=== PATIENT | female | born 1965 | race Two or more races ===

== ENCOUNTER 2017-10-29 06:56 | Emergency (ER) | payer OTHER ==
[2017-10-29 07:01] VITALS: BMI 27.8
[2017-10-29 07:02] VITALS: PULSE 82; RESP 16
--- NOTE | 2017-10-29 07:21 | ED PDOC ---
HPI: Dental Pain/Injury Time Seen by Provider: 10/29/17 07:12 History Per: Patient Onset/Duration Of Symptoms: Days (2) Current Symptoms Are (Timing): Still Present Severity: Moderate Quality: Aching Additional Complaint(s): S/p crown placement right upper molar. Had pain and started on clindamycin and tylenol with codeine yesterday. Continues with pain no fever. Past Medical History Vital Signs: Last Vital Signs Temp 98.1 F 10/29/17 07:02 Pulse 82 10/29/17 07:02 Resp 16 10/29/17 07:02 BP 131/79 10/29/17 07:02 Pulse Ox 98 10/29/17 07:02 - Medical History PMH: HTN - Family History Family History: States: Unknown Family Hx - Home Medications Home Medications: Ambulatory Orders Medication Instructions Recorded traMADol [Ultram] 50 mg PO Q8 #10 tab 10/29/17 - Allergies Allergies/Adverse Reactions: Allergies Allergy/AdvReac Type Severity Reaction Status Date / Time Unobtainable Allergy Verified 10/29/17 07:12 Review of Systems Constitutional: Negative for: Fever ENT: Positive for: Mouth Pain, Mouth Swelling Physical Exam - Physical Exam Appears: Positive for: Non-toxic, No Acute Distress Skin: Positive for: Normal Color, Warm, DRY ENT: Positive for: Other (Right upper molar, no discharge, no abscess palpable.) - ECG O2 Sat by Pulse Oximetry: 98 Disposition - Clinical Impression Clinical Impression: Pain, dental - Patient ED Disposition Is Patient to be Admitted: No Counseled Patient/Family Regarding: Diagnosis, Need For Followup, Rx Given - Disposition Referrals: Anderw Singh DDS [Staff Provider] - Disposition: Routine/Home Disposition Time: 07:21 Condition: FAIR Prescriptions: traMADol [Ultram] 50 mg PO Q8 #10 tab Instructions: Dental Pain (DC)
[2017-10-29 07:32] VITALS: BP 130/80; TEMP 98; O2SAT 100
== END 2017-10-29 08:36 | disposition home or self-care (01) ==
LOC: H.ER 06:56
DX: K08.89 Other specified disorders of teeth and supporting structures (principal)

== ENCOUNTER 2018-05-28 16:28 | Emergency (ER) | payer OTHER ==
[2018-05-28 16:28] VITALS: BMI 27.8
--- NOTE | 2018-05-28 17:02 | ED PDOC ---
Lower Extremity Pain/Injury Time Seen by Provider: 05/28/18 16:35 Chief Complaint (Nursing): Lower Extremity Problem/Injury Chief Complaint (Provider): Lower Extremity Problem History Per: Patient History/Exam Limitations: no limitations Onset/Duration Of Symptoms: Days ((last Monday)) Current Symptoms Are (Timing): Still Present Severity: Moderate Additional Complaint(s): 53 year old female with a past medical history of spinal stenosis, herniated discs, and a central tremor is sent to the ED by her pain management doctor requesting an MRI evaluation. Patient states that she was seen by Dr. Robin today and reported having new onset left foot drop ongoing for the past x 7 days. Patient recently had an outpatient MRI in 02/2018, and is requesting a repeat MRI as this one would not be approved outpatient. Patient was given toradol 30 mg IM today in office by , and reports that the pain is now well controlled. Patient reports that outside of having chronic back pain, she has been experiencing heaviness to the left lower extremity. Denies fever; no other physical complaints. PMD: Demarco Francis MD Pain management: Past Medical History Reviewed: Historical Data, Nursing Documentation, Vital Signs Vital Signs: Last Vital Signs Temp 98.5 F 05/28/18 16:31 Pulse 102 H 05/28/18 16:31 Resp 16 05/28/18 16:31 BP 168/97 H 05/28/18 16:31 Pulse Ox 98 05/28/18 16:31 BENJAMIN Report Viewed: Yes - Medical History PMH: HTN Other PMH: spinal stenosis, herniated discs, central tremor - Surgical History Surgical History: Other surgeries: cervical fusion, knee procedure: meniscus repair, epidural to lumbar spine. - Family History Family History: States: No Known Family Hx - Home Medications Home Medications: Ambulatory Orders Medication Instructions Recorded RX: traMADol [Ultram] 50 mg PO Q8 #10 tab 10/29/17 Acetaminophen [Acetaminophen 8 650 mg PO Q8 PRN #21 tablet.er 05/28/18 Hour] Meloxicam [Mobic] 15 mg PO DAILY #10 tab 05/28/18 - Allergies Allergies/Adverse Reactions: Allergies Allergy/AdvReac Type Severity Reaction Status Date / Time Penicillins Allergy URTICARIA Verified 10/29/17 07:20 Review of Systems ROS Statement: Except As Marked, All Systems Reviewed And Found Negative Musculoskeletal: Positive for: Back Pain, Other (left lower extremity heaviness) Physical Exam - Reviewed Nursing Documentation Reviewed: Yes Vital Signs Reviewed: Yes - Physical Exam Comments: GENERAL APPEARANCE: Patient is awake, alert, oriented x 3, in no acute distress. Ambulatory upon arrival to ED. SKIN: Warm, dry; (-) cyanosis. EYES: (-) conjunctival pallor. ENMT: Mucous membranes moist. Airway patent, (-) stridor. NECK: Supple, FROM CHEST AND RESPIRATORY: (-) rales, (-) rhonchi, (-) wheezes; breath sounds equal bilaterally. Respirations even and nonlabored. HEART AND CARDIOVASCULAR: (-) irregularity ABDOMEN AND GI: Soft; (-) tenderness; (-) palpable mass. BACK: (+) diffuse paralumbar tenderness, (+) midline lumbar tenderness, (-) spasm, (-) deformity EXTREMITIES: (-) deformity. Distal pulses good bilaterally. (+) decreased plantar flexion and dorsiflexion of left foot with no tenderness, erythema, edema, or skin break. FROM of toes (-) tenderness(-) loss of sensation (+) distal pulses NEURO AND PSYCH: Mental status as above. Intact sensation bilaterally; Strength not symmetric to lower extremities - decreased to left lower extremity. Speech: clear. (-) facial asymmetry (-) aphasia - Laboratory Results Result Diagrams: 05/28/18 17:50 05/28/18 17:50 - ECG O2 Sat by Pulse Oximetry: 98 (RA) Pulse Ox Interpretation: Normal - Other Rad MRI lumbar spine w/o contrast X-Ray: Viewed By Me, Read By Radiologist (see MDM) Medical Decision Making Medical Decision Makin:35 Clinical impression: 53 year old female with acute on chronic back pain and new onset foot drop. Spoke with Dr. Robin who recommended MRI evaluation and neurosurgery consult upon results. Initial plan: * MRI lumbar spine * CMP * CBC with differential * ESR 20:16 MRI lumbar spine read and reviewed by radiologist Findings: There is mild scoliosis. There is 2-3 mm of retrolisthesis at L2-3, L3-4, and L4-5. There are degenerative endplate changes at L2-3 and L5-S1. There is several vertebral hemangiomas with characteristic increased T1 and increased T2 signal intensity. No other focal osseous lesion is evident. No fracture is identified. There is no definite sign of infection. There is no sign of acute ligamentous injury. The conus medullaris appears normal, terminating at the level of L1 At T12-L1, there is mild spinal stenosis due to a 2 mm disc bulge and an 8 x 3 mm central disc herniation that indents the anterior thecal sac. There is no visible compression of the traversing nerve roots. There is slight encroachment upon the right neural foramen At L1-L2, there is mild spinal stenosis due to a 5 mm disc bulge and a 14 x 2 mm left paracentral disc protrusion that contacts the traversing left L2 nerve root. There is bilateral neural foramen narrowing, without definite compression of the exiting L1 nerve roots At L2-L3, there is spinal stenosis due to a 4 mm disc bulge that contacts the traversing L3 nerve roots. There is bilateral neural foramen narrowing, which may affect the exiting L2 nerve roots At L3-L4, there is spinal stenosis with a large 19 x 14 x 5 mm left paracentral disc extrusion that extends inferiorly posterior to the L4 vertebral body and compresses the left L4 nerve root. There is a 3 mm disc bulge at this level also. There is left greater than right neural foramen narrowing, which may affect the left L3 nerve root At L4-L5, there is spinal stenosis due to a 6 mm disc bulge and facet osteoarthritis. The traversing L5 nerve roots are contacted. There is right greater than left neural foramen narrowing, which may affect the right L4 nerve root At L5-S1, there is mild spinal stenosis due to a 3 mm disc bulge and a 14 x 3 mm broad-based central disc protrusion. The traversing left S1 nerve root is c ontacted. There is facet osteoarthritis. There is left greater than right neural foramen narrowing, which may affect the left L5 nerve root Impression: 1. Scoliosis 2. Retrolisthesis at L2-3, L3-4, and L4-5 3. Spinal stenosis at L3-4 with a large disc herniation that extends inferiorly and compresses the left L4 nerve root 4. Spinal stenosis at L1-2 with a disc protrusion that contacts the left L2 nerve root 5. Spinal stenosis at L2-3, L4-5, and L5-S1, which may affect the traversing nerve roots 6. Mild spinal stenosis at T12-L1, without compression of the traversing nerve roots 7. Bilateral L2-3, left L3-4, right L4-5, and left L5-S1 neural foramen narrowing. This may affect the exiting nerve roots. Less severe neural foramen narrowing is seen at other levels 8. Facet osteoarthritis at L4-5 and L5-S1 20:25 Discussed case with ED MD Townsend who recommends a consult be placed to neurosurgery. Consult to placed. Labs reviewed, no leukocytosis. No elevation of ESR. H&H stable. 5 Repeat HR: 78 Repeat BP: 130/80 Case discussed with neurosurgery, Dr Lagos, who recommends outpatient follow up in office and treatment in ED with Decadron IM. Decadron IM ordered. Patient requesting Benadryl in addition to Decadron as she frequently gets a rash with steroid use in the past. Denies any history of anaphylaxis. Benadryl IM ordered as well. 2145 U/A unremarkable. Utox: negative On re-evaluation, patient reports improvement of symptoms. On exam, patient remains AAOx3, in no acute distress. Gait steady in ED. Vitals stable. Lab/Diagnostic results d/w the patient in great detail. Diagnosis of acute on chronic back pain, spinal stenosis, foot drop d/w the patient. Return parameters discussed in depth with patient with understanding. Patient provided copy of MRI report for outpatient follow up. Based on history, exam and diagnostic results, plan will be for outpatient follow up with pain management/neurosurgery/ortho. Patient instructed to follow-up with pmd / referral provided / the clinic in 1- 2 days without fail. Advised to take medication as prescribed. Return to the emergency room at any time for any new or worsening symptoms. Patient states she fully agrees with and understands discharge instructions. States that she agrees with the plan and disposition. Verbalized and repeated discharge instructions and plan. I have given the patient opportunity to ask any additional questions. Scribe Attestation: Documented byGrace Shrestha, acting as a scribe for Grace Heck Provider Scribe Attestation: All medical record entries made by the Scribe were at my direction and personally dictated by me. I have reviewed the chart and agree that the record accurately reflects my personal performance of the history, physical exam, medical decision making, and the department course for this patient. I have also personally directed, reviewed, and agree with the discharge instructions and disposition. Disposition - Clinical Impression Clinical Impression: Spinal stenosis, Chronic back pain, Lumbar herniated disc, Foot drop, left - Patient ED Disposition Is Patient to be Admitted: No Counseled Patient/Family Regarding: Studies Performed, Diagnosis, Need For Followup, Rx Given - Disposition Referrals: Neto Cardenas III, MD [Staff Provider] - James Lagos MD [Staff Provider] - Lobito COVARRUBIAS,Khai Salgado MD [Non-Staff] - Disposition: Routine/Home Disposition Time: 21:45 Condition: STABLE Additional Instructions: The emergency medical care you received today was directed at your acute symptoms. If you were prescribed any medication, please fill it and take as directed. It may take several days for your symptoms to resolve. Return to the Emergency Department if your symptoms worsen, do not improve, or if you have any other problems. Please contact your doctor in 2 days for re-evaluation and follow up / or call one of the physicians/clinics you have been referred to that are listed on the Patient Visit Information form that is included in your discharge packet. Bring any paperwork you were given at discharge with you along with any medications you are taking to your follow up visit. Our treatment cannot replace ongoing medical care by a primary care provider (PCP) outside of the emergency department. Prescriptions: Acetaminophen [Acetaminophen 8 Hour] 650 mg PO Q8 PRN #21 tablet.er PRN Reason: Pain, Moderate (4-7) Meloxicam [Mobic] 15 mg PO DAILY #10 tab Instructions: Low Back Pain in Adults, Herniated Disc, Chronic Pain (DC), Spinal Stenosis (DC), Foot Drop, Herniated Disc Exercises, Back Precautions Forms: Kandu (German) Print Language: EAST TIMORESE - POA Present On Arrival: None Results - Lab Results Lab Results: 02/05/28/18 05/28/18 20:05 20:05 17:50 WBC RBC Hgb Hct MCV MCH MCHC RDW Plt Count MPV Neut % (Auto) Lymph % (Auto) Jennings % (Auto) Eos % (Auto) Baso % (Auto) Neut # (Auto) Lymph # (Auto) Jennings # (Auto) Eos # (Auto) Baso # (Auto) ESR Sodium 140 Potassium 3.7 Chloride 99 Carbon Dioxide 31 H Anion Gap 14 BUN 16 Creatinine 0.8 Est GFR ( Amer) > 60 Est GFR (Non-Af Amer) > 60 Random Glucose 100 Calcium 9.5 Total Bilirubin 0.4 AST 29 ALT 32 Alkaline Phosphatase 65 Total Protein 7.2 Albumin 4.0 Globulin 3.2 Albumin/Globulin Ratio 1.2 Urine Color Yellow Urine Clarity Cloudy Urine pH 6.0 Ur Specific [place] 1.033 H Urine Protein 100 Urine Glucose (UA) Neg Urine Ketones Trace Urine Blood Negative Urine Nitrate Negative Urine Bilirubin Negative Urine Urobilinogen 1.0 Ur Leukocyte Esterase Neg Urine RBC (Auto) 2 Urine Microscopic WBC 5 Ur Squamous Epith Cells 3 Calcium Oxalate Crystal Rare Amorphous Sediment Rare H Urine Bacteria Rare Urine Opiates Screen Negative Urine Methadone Screen Negative Ur Barbiturates Screen Negative Ur Phencyclidine Scrn Negative Ur Amphetamines Screen Negative U Benzodiazepines Scrn Negative U Oth Cocaine Metabols Negative U Cannabinoids Screen Negative 05/28/18 17:50 WBC 5.3 RBC 4.89 Hgb 14.3 Hct 42.9 MCV 87.7 MCH 29.3 MCHC 33.4 RDW 13.6 Plt Count 234 MPV 8.2 Neut % (Auto) 61.8 Lymph % (Auto) 28.5 Jennings % (Auto) 7.3 Eos % (Auto) 1.6 Baso % (Auto) 0.8 Neut # (Auto) 3.3 Lymph # (Auto) 1.5 Jennings # (Auto) 0.4 Eos # (Auto) 0.1 Baso # (Auto) 0.0 ESR 12 Sodium Potassium Chloride Carbon Dioxide Anion Gap BUN Creatinine Est GFR ( Amer) Est GFR (Non-Af Amer) Random Glucose Calcium Total Bilirubin AST ALT Alkaline Phosphatase Total Protein Albumin Globulin Albumin/Globulin Ratio Urine Color Urine Clarity Urine pH Ur Specific [place] Urine Protein Urine Glucose (UA) Urine Ketones Urine Blood Urine Nitrate Urine Bilirubin Urine Urobilinogen Ur Leukocyte Esterase Urine RBC (Auto) Urine Microscopic WBC Ur Squamous Epith Cells Calcium Oxalate Crystal Amorphous Sediment Urine Bacteria Urine Opiates Screen Urine Methadone Screen Ur Barbiturates Screen Ur Phencyclidine Scrn Ur Amphetamines Screen U Benzodiazepines Scrn U Oth Cocaine Metabols U Cannabinoids Screen
[2018-05-28 18:19] LABS: BASO % 0.8 % (0.0-2.0); EOS # 0.1 K/uL (0.0-0.7); EOS % 1.6 % (0.0-4.0); HEMOGLOBIN 14.3 g/dL (12.0-16.0); LYMPH # 1.5 K/uL (1.0-4.3); LYMPH % 28.5 % (20.0-40.0); MEAN CELL VOLUME 87.7 fl (81.0-99.0); MEAN CORPUSCULAR HEMOGLOBIN 29.3 pg (27.0-31.0); MEAN CORPUSCULAR HGB CONC 33.4 g/dL (33.0-37.0); MEAN PLATELET VOLUME 8.2 fl (7.2-11.7); MONO # 0.4 K/uL (0.0-0.8); MONO % 7.3 % (0.0-10.0); NEUT # 3.3 K/uL (1.8-7.0); NEUT % 61.8 % (50.0-75.0); RBC 4.89 Mil/uL (3.80-5.20); RED CELL DISTRIBUTION WIDTH 13.6 % (11.5-14.5); WHITE BLOOD COUNT 5.3 K/uL (4.8-10.8)
[2018-05-28 18:45] LABS: ALB/GLOB RATIO 1.2 (1.0-2.1); ALT/SGPT 32 U/L (9-52); AST/SGOT 29 U/L (14-36); BLOOD UREA NITROGEN 16 mg/dl (7-17); CALCIUM 9.5 mg/dL (8.4-10.2); GFR NON-AFRICAN AMERICAN > 60
[2018-05-28 20:23] VITALS: RESP 18; TEMP 98
[2018-05-28 20:25] LABS: SQUAMOUS EPITHIAL 3 /hpf (0-5); URINE AMORPHOUS SEDIMENT RARE /ul (<OCC); URINE BACTERIA RARE (<OCC); URINE BILIRUBIN NEGATIVE (NEGATIVE); URINE BLOOD NEGATIVE (NEGATIVE); URINE CALCIUM OXALATE CRYSTALS RARE /hpf (<OCC); URINE CLARITY CLOUDY (Clear); URINE GLUCOSE (UA) NEG (NEGATIVE); URINE LEUKOCYTE ESTERASE NEG Leu/uL (Negative); URINE PROTEIN 100 mg/dL (NEGATIVE)
[2018-05-28 20:27] LABS: URINE COLOR YELLOW (YELLOW)
[2018-05-28 20:40] LABS: BARBITURATES, UR NEGATIVE (NEGATIVE); BENZODIAZEPINES, UR NEGATIVE (NEGATIVE); OPIATES, UR NEGATIVE (NEGATIVE); PHENCYCLIDINE, UR NEGATIVE (NEGATIVE)
[2018-05-28] MEDS ORDERED: Dexamethasone 4 mg/1 ml IM STA (21:15)
[2018-05-28] MEDS ORDERED: DiphenhydrAMINE 50 mg/ml Inj IM STA (21:15)
[2018-05-28] MEDS ORDERED: DiphenhydrAMINE 50 mg/ml Inj ONE (21:24)
[2018-05-28 22:16] VITALS: BP 130/80; PULSE 78
--- NOTE | 2018-05-29 13:23 | MRI ---
Date of service: 05/28/2018 PROCEDURE: MR LUMBAR SPINE WITHOUT CONTRAST HISTORY: SEVERE LOW BACK PAIN, LEFT FOOT DROP COMPARISON: None available. TECHNIQUE: Multiecho multiplanar sequences were performed through the lumbar spine without the use of intravenous contrast. FINDINGS: No acute compression fractures nor retropulsed fragments. Vertebral bodies exhibit relatively normal stature. Some minor type 1 discogenic sclerosis seen along the anterior inferior corner of the L2 segment. The there is mild type 2 discogenic sclerosis along the L5-S1 endplates with a localized area of right parasagittal type 1 discogenic sclerosis along the inferior L5 endplate. Minimal scoliotic deformity centered at the L3-L4 level. Very slight posterior subluxation of L1 over L2, L2 over L3 and L3 over L4 exacerbated in appearance by small to medium-sized osteophytes arising from the posterior inferior corners of the L1, L2 and L3 segments. The remaining vertebral bodies otherwise exhibit relatively normal alignment. Facets normally aligned. Multilevel degenerative spondylosis. At the L3-L4 level, there is mild disc desiccation and mild posterior disc space narrowing. There is mild broad-based bulge of the posterior annulus at the disc space level however an associated left parasagittal and central subligamentous disc herniation component extends inferiorly within the canal over nearly the entire length of the L4 segment and results in significant compressive effects on the left anterolateral border of the thecal sac as well as the left-sided intrathecal and extra thecal L4 nerve root. Facets at this level are hypertrophic flavum somewhat buckled.. Exit foramina appear adequate. At the L4-L5 level, there is also mild disc desiccation and mild posterior disc space narrowing. Small somewhat asymmetric of though broad-based disc protrusion ridge complex extends into the proximal inferior margins of both exit foramina left greater than right. The. The facets also hypertrophic at this level. There is a broad-based compression of the thecal sac along the superior margin of the disc space level with bilateral recess narrowing with more localized compression of the left anterolateral border of the thecal sac along the inferior disc space level as well as compression of the descending extra thecal left-sided L5 nerve root. Facets are hypertrophic and flavum are also buckled. Exit foramina are marginal to slightly narrowed more so on the left side. At the L5-S1 level, there is disc herniation desiccation and moderate disc space narrowing. Small central and bilateral disc protrusion -herniation is also seen extending peripherally into proximal inferior margins of both exit foramina. Facets are hypertrophic on and flavum are also buckled at this level. There is minor flattening of the ventral surface of the thecal sac. Central canal is slightly narrowed at this level though commensurate with the smaller caliber lower lumbar/sacral thecal sac diameter. Exit foramina are also narrowed bilaterally. At the L2-L3 level, there is disc desiccation and moderate to fairly significant disc space narrowing. Small broad-based disc protrusion ridge complex extends into the proximal inferior margins of both exit foramina where protrusion components are more prominent. There is mild to moderate flattening of the ventral surface of the thecal sac with bilateral lateral recess stenosis. The central canal is marginal to slightly narrowed. Posterior compression and displacement of the ventrally located intrathecal nerve roots of the cauda equina. Facets also hypertrophic and flavum slightly buckled. At the L1-L2 level, there is disc desiccation and moderate disc space narrowing. Small broad-based bulge of the posterior annulus with of more localized left parasagittal protrusion herniation component that compresses the left anterolateral border of the thecal sac. There is mild bilateral lateral recess narrowing more so on the left side. Facets are hypertrophic. Exit foramina appear adequate. At the T12-L1 level, there is disc desiccation and moderate disc space narrowing. Small central and bilateral disc protrusion herniation present with resultant focal compression of the ventral surface of the thecal sac. The disc nearly reaches but does not compress the ventral surface of the conus. Central canal appears adequate. Exit foramina also adequate. No definitive intrinsic signal changes seen within the visualized lower thoracic cord or conus. OTHER FINDINGS: None. IMPRESSION: Multilevel degenerative spondylosis with a large left-sided subligamentous disc herniation which arising from the L3-L4 disc space level and extends inferiorly centrally into the left to near the L4-L5 disc space level. This results in significant compression of the left anterolateral border of the thecal sac as well as the descending left-sided extra thecal L4 nerve root.. See above discussion for additional details and findings at the remaining levels.
[2018-05-29 14:45] VITALS: O2SAT 98
== END 2018-05-28 22:15 | disposition home or self-care (01) ==
LOC: H.ER 16:28
DX: G89.29 Other chronic pain (principal); M48.07 Spinal stenosis, lumbosacral region; M54.9 Dorsalgia, unspecified; M51.26 Other intervertebral disc displacement, lumbar region; M21.372 Foot drop, left foot; I10 Essential (primary) hypertension; M41.9 Scoliosis, unspecified; Z88.0 Allergy status to penicillin
CPT/HCPCS: 72148; 80053; 80324; 80345; 80346; 80349; 80353; 80358; 80361; 81003; 83992; 85025; 85651; 96372; 99284; J1100; J1200

== ENCOUNTER 2018-06-13 09:12 | Inpatient (IN) | payer OTHER ==
[2018-06-13 09:12] VITALS: BMI 27.8
[2018-06-13] MEDS ORDERED: Sodium Chloride 0.9% 1,000 ML IV STA (09:42)
[2018-06-13 10:22] LABS: VENOUS BLOOD GAS BASE EXCESS 8.8 mmol/L (0.0-2.0); VENOUS BLOOD GAS PCO2 68 mmHg (40-60); VENOUS BLOOD GAS PO2 29 mm/Hg (30-55); VENOUS BLOOD PH 7.35 (7.32-7.43)
[2018-06-13 10:27] LABS: BASO % 0.2 % (0.0-2.0); EOS % 0.4 % (0.0-4.0); HEMOGLOBIN 14.3 g/dL (12.0-16.0); LYMPH # 0.7 K/uL (1.0-4.3); MEAN CELL VOLUME 87.2 fl (81.0-99.0); MEAN CORPUSCULAR HEMOGLOBIN 29.5 pg (27.0-31.0); MEAN CORPUSCULAR HGB CONC 33.8 g/dL (33.0-37.0); MEAN PLATELET VOLUME 8.8 fl (7.2-11.7); MONO # 0.7 K/uL (0.0-0.8); NEUT % 87.4 % (50.0-75.0); NRBC % 0.2 % (0.0-0.0); PLATELET COUNT 291 K/uL (130-400); RBC 4.86 Mil/uL (3.80-5.20); RED CELL DISTRIBUTION WIDTH 13.5 % (11.5-14.5); WHITE BLOOD COUNT 11.4 K/uL (4.8-10.8)
--- NOTE | 2018-06-13 10:27 | ED PDOC ---
HPI: Psych/Substance Abuse Time Seen by Provider: 06/13/18 09:32 Chief Complaint (Nursing): Ingestion, Accidental Chief Complaint (Provider): Ingestion History Per: Patient, EMS, Family History/Exam Limitations: no limitations Onset/Duration Of Symptoms: Days Current Symptoms Are (Timing): Still Present Associated Symptoms: Suicidal Thoughts, Suicidal Plan Additional Complaint(s): 53 year old female with a past medical history of hypertension who was brought to the ED by EMS for evaluation of altered mental status s/p intention overdose of diazepam. Patient was brought in by [facility] with boyfriend. She is easily arousable but quickly falls asleep. She is lethargic with slurred speech and admits to taking pills, but cant remember how many pills she took or when she took them. Patient is unsure of todays date but can remember her date of . Her boyfriend states that he saw her yesterday and found her unconscious this morning. EMS reports that they found a suicide note along with an empty bottle of diazepam filled on 06/09/18 with 50 pills of 5 mg. EMS was able to show suicide note which stated that she was intentionally overdosing on medication as she feels like she cant make people happy and also states that she didnt want a service and wants to be cremated. Spoke with patients boyfriend who also lives with patient and he states that she took pills 2 nights ago but doesnt know how many she took. He admits that she stated that she wanted to kill herself but he states that she had a history of threats so he did not take her seriously. He states that she was asleep when he woke up so he went to work and came home last night where patient was able to walk to the bathroom where she collapsed and he had to help her up and get her into bed. This morning the boyfriend states that while he was getting ready he found the suicide note and empty bottle so he called 911. The boyfriends name is Sammy with phone number: PMD: Zakia Hess Past Medical History Reviewed: Historical Data, Nursing Documentation, Vital Signs Vital Signs: Last Vital Signs Temp 97.5 F L 06/13/18 09:16 Pulse 85 06/13/18 09:16 Resp 13 06/13/18 09:16 BP 113/72 06/13/18 09:16 Pulse Ox 92 L 06/13/18 09:16 - Medical History PMH: HTN - Surgical History Surgical History: Back Surgery, - Family History Family History: States: Unknown Family Hx - Social History Current smoker - smoking cessation education provided: No Alcohol: Social Drugs: Denies - Immunization History Hx Tetanus Toxoid Vaccination: Yes Hx Influenza Vaccination: Yes Hx Pneumococcal Vaccination: Yes - Home Medications Home Medications: Ambulatory Orders Medication Instructions Recorded Amantadine [Amantadine 100 mg Cap] 100 mg PO Q12 06/13/18 Gabapentin [Neurontin] 600 mg PO Q8 06/13/18 Lisinopril [Zestril] 5 mg PO DAILY 06/13/18 Multivitamin [Multi-Vitamin Daily] 1 tab PO DAILY 06/13/18 Venlafaxine HCl 75 mg PO DAILY 06/13/18 diaZEpam [Valium] 5 mg PO Q6 PRN 06/13/18 hydroCHLOROthiazide [Microzide] 12.5 mg PO DAILY 06/13/18 oxyCODONE [oxyCODONE Immediate 5 mg PO Q4 PRN 06/13/18 Release Tab] traMADol [Ultram] 50 mg PO Q6 PRN 06/13/18 - Allergies Allergies/Adverse Reactions: Allergies Allergy/AdvReac Type Severity Reaction Status Date / Time Penicillins Allergy URTICARIA Verified 06/13/18 09:15 Review of Systems ROS Statement: Except As Marked, All Systems Reviewed And Found Negative Constitutional: Positive for: Other (lethargic ) Psych: Positive for: Suicidal ideation, Other (overdose ) Physical Exam - Reviewed Nursing Documentation Reviewed: Yes Vital Signs Reviewed: Yes - Physical Exam Appears: Positive for: Non-toxic, No Acute Distress Head Exam: Positive for: ATRAUMATIC, NORMAL INSPECTION, NORMOCEPHALIC Skin: Positive for: Normal Color, Warm, DRY Eye Exam: Positive for: EOMI, Normal appearance, PERRL ENT: Positive for: Normal ENT Inspection Neck: Positive for: Normal, Painless ROM, Supple Cardiovascular/Chest: Positive for: Regular Rate, Rhythm. Negative for: Murmur Respiratory: Positive for: Normal Breath Sounds. Negative for: Respiratory Distress Gastrointestinal/Abdominal: Positive for: Normal Exam, Soft. Negative for: Tenderness Back: Positive for: Normal Inspection. Negative for: L CVA Tenderness, R CVA Tenderness, Vertebral Tenderness Extremity: Positive for: Normal ROM. Negative for: Deformity, Swelling Neurologic/Psych: Positive for: Alert, Oriented. Negative for: Motor/Sensory Deficits - Laboratory Results Result Diagrams: 06/13/18 10:00 06/13/18 10:00 Lab Results: pO2 29 mm/Hg (30-55) L 06/13/18 10:14 VBG pH 7.35 (7.32-7.43) 06/13/18 10:14 VBG pCO2 68 mmHg (40-60) H* 06/13/18 10:14 VBG HCO3 30.5 mmol/L 06/13/18 10:14 VBG Total CO2 39.6 mmol/L (22-28) H 06/13/18 10:14 VBG O2 Sat (Calc) 57.2 % (40-65) 06/13/18 10:14 VBG Base Excess 8.8 mmol/L (0.0-2.0) H 06/13/18 10:14 VBG Potassium 3.8 mmol/L (3.6-5.2) 06/13/18 10:14 Sodium 140.0 mmol/L (132-148) 06/13/18 10:14 Chloride 103.0 mmol/L (98-107) 06/13/18 10:14 Glucose 108 mg/dL (65-105) H 06/13/18 10:14 Lactate 1.1 mmol/L (0.7-2.1) 06/13/18 10:14 FiO2 21.0 % 06/13/18 10:14 Crit Value Called To Grace buck md 06/13/18 10:14 Crit Value Called By James ysed front end drupal developer 06/13/18 10:14 Crit Value Read Back Y 06/13/18 10:14 Blood Gas Notified Time 1020 06/13/18 10:14 - ECG O2 Sat by Pulse Oximetry: 92 (RA) Medical Decision Making Medical Decision Making: Time: 9:44 A/P: intentional overdose with suicidal ideation --Labs including diazepam level and tox screen --Patient on 2 liter nasal cannula and entitled CO2 --Crisis consult placed --Reevaluate patient 9:50 Spoke with poison control who agree with conservative symptomatic treatment and agree with plan to avoid flumazenil if patient to be intubated. 13:45 Pt now fully alert and oriented. Labs WNL. Pt seen and evaluated by crisis and pt to be admitted to psychiatry under Dr. Nails for treatment of depression. Scribe Attestation: Documented by Elissa Jewell, acting as a scribe for Grace Buck MD. Provider Scribe Attestation: All medical record entries made by the Scribe were at my direction and personally dictated by me. I have reviewed the chart and agree that the record a ccurately reflects my personal performance of the history, physical exam, medical decision making, and the department course for this patient. I have also personally directed, reviewed, and agree with the discharge instructions and disposition. Disposition - Clinical Impression Clinical Impression: Depressed, Overdose - Patient ED Disposition Is Patient to be Admitted: Yes - Disposition Disposition Time: 13:51 Condition: IMPROVED Forms: [email or web address] (Swiss)
[2018-06-13 10:30] LABS: INR 1.1; PROTHROMBIN TIME 12.5 Seconds (9.8-13.1)
[2018-06-13 10:33] LABS: PARTIAL THROMBOPLASTIN TIME 37.4 Seconds (25.6-37.1)
[2018-06-13 10:55] LABS: ALB/GLOB RATIO 1.1 (1.0-2.1); ALBUMIN 4.4 g/dL (3.5-5.0); ALT/SGPT 51 U/L (9-52); AST/SGOT 107 U/L (14-36); BLOOD UREA NITROGEN 30 mg/dl (7-17); CALCIUM 10.4 mg/dL (8.4-10.2); GFR NON-AFRICAN AMERICAN 52
--- NOTE | 2018-06-13 11:11 | RAD ---
Date of service: 06/13/2018 HISTORY: possible admission COMPARISON: No prior. FINDINGS: LUNGS: No consolidation. Possible left lateral mid to lung zone thread-like atelectasis and/or scarring. No significant appearing atelectasis noted PLEURA: No significant pleural effusion identified, no pneumothorax apparent. CARDIOVASCULAR: There is presence of aortic atherosclerotic calcification on x-ray. Heart size top normal no pulmonary vascular congestion. OSSEOUS STRUCTURES: Cervical fusion hardware present. Partially visualized bilateral shoulder arthrosis VISUALIZED UPPER ABDOMEN: Normal. OTHER FINDINGS: None. IMPRESSION: No consolidation seen. Possible left lateral mid to lung zone thread-like atelectasis and/or scarring. No significant appearing atelectasis noted Other findings as above.
[2018-06-13 11:23] LABS: BANDS 3 % (0-2); LYMPHOCYTE 9 % (20-50); MONOCYTE 5 % (0-10); NEUTROPHIL 83 % (42-75); PLATELET ESTIMATE NORMAL (NORMAL); TOTAL CELLS COUNTED 100
[2018-06-13 13:19] LABS: SQUAMOUS EPITHIAL 10 /hpf (0-5); URINE BACTERIA FEW (<OCC); URINE BILIRUBIN NEGATIVE (NEGATIVE); URINE BLOOD NEGATIVE (NEGATIVE); URINE CLARITY CLOUDY (Clear); URINE GLUCOSE (UA) NEG (NEGATIVE); URINE LEUKOCYTE ESTERASE NEG Leu/uL (Negative); URINE PROTEIN NEGATIVE (NEGATIVE)
[2018-06-13 13:21] LABS: URINE COLOR YELLOW (YELLOW)
[2018-06-13 13:32] LABS: OPIATES, UR NEGATIVE (NEGATIVE); PHENCYCLIDINE, UR NEGATIVE (NEGATIVE)
[2018-06-13 13:37] LABS: BARBITURATES, UR NEGATIVE (NEGATIVE); BENZODIAZEPINES, UR POSITIVE (NEGATIVE)
--- NOTE | 2018-06-13 15:41 | CARD ---
APPROVED REPORT Date of service: 06/13/2018 EKG Measurement Heart [id number] <Conclusion> Normal sinus rhythm Possible Left atrial enlargement Left ventricular hypertrophy Abnormal ECG
[2018-06-13] MEDS ORDERED: Alum-Mag Hydrox-Simethicone Susp (30 mL) PO PRN (15:54)
[2018-06-13] MEDS ORDERED: DiphenhydrAMINE 50 mg/ml Inj IM PRN (15:54)
[2018-06-13] MEDS ORDERED: Magnesium Hydroxide Susp 30 ml UD PO PRN (15:54)
--- NOTE | 2018-06-13 16:25 | PCM.BM ---
<Darcy Tejada - Last Filed: 06/13/18 16:23> Treatment Plan Problems - Problems identified on initial assessmt Hopelessness/Helplessness Date Initiated: 06/13/18 Time Initiated: 16:24 Assessment reference: NA Status: Active Activity Intolerance Date Initiated: 06/13/18 Time Initiated: 16:24 Assessment reference: NA Status: Active Altered Sleep Patterns Date Initiated: 06/13/18 Time Initiated: 16:24 Assessment reference: NA Treatment assets and liabiliti Patient Assests: adapts well, cooperative Patient Liabilities: physical pain, poor support system, relationship conflicts - Milieu Protocol Maintain good personal hygiene: daily Encourage regular showers, daily Remind patient to perform daily oral care, daily Assist patient to perform ADL's Conduct patient checks and document Observation sheet: Q15 minutes Maintain personal safety: every shift Educate patient to report safety concerns to staff, every shift Monitor environment for contraband/sharps Medication safety: Monitor for expected outcome, potential side effects: every shift, Assess barriers to learning: every shift, Assess readiness for medication education: every shift Family Contact Family involvement: Family/SO is involved <Debby Walton - Last Filed: 06/14/18 10:35> - Diagnosis (1) Major depressive disorder Status: Acute Interventions: Medication management, Individual and group therapy, Psychoeducation 06/14/18 10:35 <Oxana Reyna - Last Filed: 06/15/18 15:44> Family Contact Family involvement: Family/SO is involved Family contact: Patient agrees to contact, Other (Pt refuses to engage in assessment; unable to obtain consent to contact family) Family contact name: Riaz- Significant other - Goals for Treatment Patient goals for treatment: Pt will improve overal mood. Pt will be free of suicide thoughts. Pt will develop strategies for thought distraction when ruminating ont he past. Pt will attend clinical and activity groups. Pt will be compliant with prescribed medication. Discharge/Continuing Care - Education Needs Education Needs: Patient Medication, Patient Diagnosis/Disease Process, Patient Coping Skills, Patient Community resources, Patient Activities of Daily Living, Patient Uses of Medical Equipment, Patient Health Practices/Safety, Patient Personal Hygiene/Grooming, Patient Aftercare Safety Plan - Discharge Discharge Criteria: Tolerates medication w/o severe side effects, Free of Suicidal thoughts, Free of agitation, Normal sleep pattern, Ability to care for self, Reduction of target symptoms Discharge to:: Home, With Family - Additional Comments 06/15/18 15:35 Pt discussed in team meeting. Pt unable to attend team meeting, [facility] ScreenerLuan at bedside to evaluate pt. Pt continues to be on a 1:1 due to safety precaution and suicide ideation. Pt signed a 48 hour notice of intent to leave and [facility] Screening Center to evaluate her. Pt refuses to engage in assessment with sql report writer, attending MD and registered nurses. Pt is uncooperative on the unit. Pt has been observed to be restless, agitated, and screaming/yelling at times. Reason for admission reviewed and discussed. Pt's medical and social issues reviewed and discussed. Pt's medications reviewed. Tx plan reviewed. SW will continue to follow case. [facility] Screening Center evaluated pt and Screening Document completed. Pt is involuntarily committed to a [facility] Unit. Pt pending bed availability at [facility]. - Treatment Team Participation Discussed with Family/SO: No Was Patient/Family/SO present at Treatment Team Meeting: Yes
[2018-06-13 16:50] LABS: ACETAMINOPHEN < 10.0 ug/ml (10.0-30.0); SALICYLATE < 1.0 mg/dl
[2018-06-14] MEDS: Multivitamin With Minerals Tab PO SCH (08:40)
--- NOTE | 2018-06-14 10:39 | PCM.PSYCH ---
Initial Psychiatric Evaluation - Initial Psychiatric Evaluation Type of Admission: Voluntary Legal Status: Capacity Chief Complaint (in patient's own words): "I don't want to be here." /Patient admitted s/p overdose on Valium Patient's Reaction to Hospitalization: Patient currently unwilling to answer questions from development writer, despite being arousable, she closes her eyes and doesn't answer questions. She did state that she wants to leave and poorly attempted to sign her name on the 48 hr notice. HPI: 53 year old female with a past medical history of hypertension who was brought to the ED by EMS for evaluation of altered mental status s/p intention overdose of diazepam. Patient was brought in by [facility] with boyfriend. She can not recall how many tablets she took. Her boyfriend states that he saw her yesterday and found her unconscious this morning. EMS reports that they found a suicide note along with an empty bottle of diazepam filled on 06/09/18 with 50 pills of 5 mg. EMS was able to show suicide note which stated that she was intentionally overdosing on medication as she feels like she cant make people happy and also states that she didnt want a service and wants to be cremated. ER Spoke with patients boyfriend who also lives with patient and he states that she took pills 2 nights ago but doesnt know how many she took. He admits that she stated that she wanted to kill herself but he states that she had a history of threats so he did not take her seriously. He states that she was asleep when he woke up so he went to work and came home last night where patient was able to walk to the bathroom where she collapsed and he had to help her up and get her into bed. PMHx: S/p back surgery; HTN ALL: PCN Current Medications: Active Medications Generic Name Dose Route Start Last Admin Trade Name Freq PRN Reason Stop Dose Admin Acetaminophen 650 mg 06/13/18 15:54 06/14/18 06:41 Tylenol 325mg Tab PO 650 mg Q4 PRN Administration Pain, moderate (4-7) Al Hydrox/Mg Hydrox/Simethicone 30 ml 06/13/18 15:54 Maalox Plus 30 Ml PO Q4 PRN Dyspepsia Clonazepam 0.5 mg 06/13/18 15:58 Klonopin PO BID PRN Anxiety Diphenhydramine HCl 50 mg 06/13/18 15:54 Benadryl IM Q6 PRN Extrapyramidal S/S Unable PO Diphenhydramine HCl 50 mg 06/13/18 15:54 Benadryl PO Q6 PRN Extrapyramidal Symptoms Gabapentin 300 mg 06/13/18 17:00 06/14/18 08:40 Neurontin PO 300 mg TID LUKAS Administration Haloperidol 5 mg 06/13/18 15:54 Haldol PO Q4 PRN Agitation Haloperidol Lactate 5 mg 06/13/18 15:54 Haldol IM Q4 PRN Agitation, Unable to Take PO Hydrochlorothiazide 12.5 mg 06/14/18 09:00 06/14/18 08:40 Microzide PO 12.5 mg DAILY LUKAS Administration Lisinopril 5 mg 06/14/18 09:00 06/14/18 08:41 Zestril PO 5 mg DAILY LUKAS Administration Lorazepam 2 mg 06/13/18 15:54 Ativan IM Q4 PRN Anxiety/Agitation,Unable PO Lorazepam 2 mg 06/13/18 15:54 06/14/18 08:07 Ativan PO 2 mg Q4 PRN Administration Anxiety/Agitation Lorazepam 1 mg 06/14/18 13:00 Ativan PO TID LUKAS Magnesium Hydroxide 30 ml 06/13/18 15:54 Milk Of Magnesia PO HS PRN Constipation Multivitamins/Minerals 1 tab 06/14/18 09:00 06/14/18 08:40 Therapeutic-M Tab PO 1 tab DAILY LUKAS Administration Tramadol HCl 50 mg 06/13/18 17:22 06/14/18 00:57 Ultram PO 50 mg Q6 PRN Administration Pain, moderate (4-7) Past Psychiatric History - Past Psychiatric History Pertinent Medical Hx (Current Medical&Sleep Prob, Allergies): Allergies Allergy/AdvReac Type Severity Reaction Status Date / Time Penicillins Allergy URTICARIA Verified 06/13/18 09:15 Amantadine [Amantadine 100 mg Cap] 100 mg PO Q12 06/13/18 Gabapentin [Neurontin] 600 mg PO Q8 06/13/18 Lisinopril [Zestril] 5 mg PO DAILY 06/13/18 Multivitamin [Multi-Vitamin Daily] 1 tab PO DAILY 06/13/18 Venlafaxine HCl 75 mg PO DAILY 06/13/18 diaZEpam [Valium] 5 mg PO Q6 PRN 06/13/18 hydroCHLOROthiazide [Microzide] 12.5 mg PO DAILY 06/13/18 oxyCODONE [oxyCODONE Immediate Release Tab] 5 mg PO Q4 PRN 06/13/18 traMADol [Ultram] 50 mg PO Q6 PRN 06/13/18 Review of Systems - Psychiatric Psychiatric: As Per HPI, Depression, Suicidal Ideation Mental Status Examination - Personal Presentation Personal Presentation: Looks older than stated age - Affect Affect: Constricted, Depressed - Motor Activity Motor Activity: Calm - Reliability in Providing Information Reliability in Providing Information: Other (Poor due to lack of cooperation) - Mood Mood: Depressed - Hallucinations/Delusions Additional comments: NO AH/VH/paranoia/delusions - Obsessions/Compulsions Obsessions: No Compulsions: No - Cognitive Functions Sensorium: Drowsy Judgement: Imparied, as evidence by: Poor judgement, Imparied, as evidence by: Lack of insight into illness - Risk Risk: Suicidal, Diminished functioning DSM 5 DX - DSM 5 DSM 5 Diagnosis: Major Depressive Disorder - Recommended/Plan of Treatment Treatment Recommendations and Plan of Treatment: Major Depressive Disorder -Admit to psychiatry unit -Monitor for benzo withdrawal; will give Ativan as needed -Screen for involuntary psychiatric admission -Individual and group therapy -1:1 as patient is not able to contract for safety at this time -Medicine consult
--- NOTE | 2018-06-14 11:48 | CP.PCM.HP ---
<Juanita Norris - Last Filed: 06/14/18 16:03> History of Present Illness - History of Present Illness History of Present Illness: 53 yo female seen and evaluated s/p intention overdose of diazepam. Patient alert, however unwilling to answer questions. Patient is difficult to understand and very drowsy. PMHx: S/p back surgery; HTN ALL: PCN Present on Admission - Present on Admission Any Indicators Present on Admission: No Past Patient History - Past Social History Alcohol: Social Drugs: Denies - CARDIAC Hx Cardiac Disorders: Yes (HTN) Hx Hypertension: Yes - PULMONARY Hx Tuberculosis: No - NEUROLOGICAL Hx Neurological Disorder: Yes (tremors) - HEMATOLOGICAL/ONCOLOGICAL Hx Cancer: No Hx Human Immunodeficiency Virus (HIV): No - MUSCULOSKELETAL/RHEUMATOLOGICAL Hx Musculoskeletal Disorders: Yes (back surgery for herniated disk) - GENITOURINARY/GYNECOLOGICAL Hx Sexually Transmitted Disorders: No - PSYCHIATRIC Hx Emotional Abuse: Yes Hx Substance Use: No - SURGICAL HISTORY Hx Section: Yes (x2) Other/Comment: cervical spine sx X2. Uterine ablation. left knee meniscus - ANESTHESIA Hx Anesthesia: Yes Hx Anesthesia Reactions: No Meds Allergies/Adverse Reactions: Allergies Allergy/AdvReac Type Severity Reaction Status Date / Time Penicillins Allergy URTICARIA Verified 06/13/18 09:15 Physical Exam - Constitutional Appears: Well, Non-toxic, In Acute Distress - Head Exam Head Exam: ATRAUMATIC, NORMOCEPHALIC - Eye Exam Eye Exam: Normal appearance Pupil Exam: NORMAL ACCOMODATION - ENT Exam ENT Exam: Mucous Membranes Moist - Cardiovascular Exam Cardiovascular Exam: REGULAR RHYTHM, +S1, +S2 - Neurological Exam Neurological exam: Alert - Psychiatric Exam Psychiatric exam: Depressed Results - Vital Signs Recent Vital Signs: Last Vital Signs Temp 97.1 F L 06/14/18 06:00 Pulse 81 06/14/18 08:41 Resp 18 06/14/18 06:00 BP 114/74 06/14/18 08:41 Pulse Ox 99 06/13/18 15:29 - Labs Result Diagrams: 06/14/18 14:16 06/14/18 14:16 Labs: Laboratory Results - last 24 hr 06/13/18 06/13/18 06/13/18 11:04 13:00 13:00 Thyroxine (T4) TSH 3rd Generation Urine Color Yellow Urine Clarity Cloudy Urine pH 5.0 Ur Specific Hewett 1.023 Urine Protein Negative Urine Glucose (UA) Neg Urine Ketones Negative Urine Blood Negative Urine Nitrate Negative Urine Bilirubin Negative Urine Urobilinogen 2.0 H Ur Leukocyte Esterase Neg Urine RBC (Auto) 2 Urine Microscopic WBC 6 H Ur Squamous Epith Cells 10 H Urine Bacteria Few H Salicylates Urine Opiates Screen Negative Urine Methadone Screen Negative Acetaminophen Ur Barbiturates Screen Negative Ur Phencyclidine Scrn Negative Ur Amphetamines Screen Negative U Benzodiazepines Scrn Positive U Oth Cocaine Metabols Negative U Cannabinoids Screen Positive H Blood Type Confirm A POSITIVE 06/13/18 06/14/18 13:55 09:20 Thyroxine (T4) 9.79 TSH 3rd Generation 0.87 Urine Color Urine Clarity Urine pH Ur Specific Hewett Urine Protein Urine Glucose (UA) Urine Ketones Urine Blood Urine Nitrate Urine Bilirubin Urine Urobilinogen Ur Leukocyte Esterase Urine RBC (Auto) Urine Microscopic WBC Ur Squamous Epith Cells Urine Bacteria Salicylates < 1.0 Urine Opiates Screen Urine Methadone Screen Acetaminophen < 10.0 L Ur Barbiturates Screen Ur Phencyclidine Scrn Ur Amphetamines Screen U Benzodiazepines Scrn U Oth Cocaine Metabols U Cannabinoids Screen Blood Type Confirm Assessment & Plan - Assessment and Plan (Free Text) Assessment: 53 yo female with pmhx of hypertension seen and evaluated s/p intention overdose of diazepam Plan: Depression w/ suicidal ideation -Manage as per psychiatry team Hypertension -c/w hydrochlorothiazide and lisinopril DVT prophylaxis -encourage ambulation Diet -Heart healthy Patient seen, examined and plan d/w Dr. Kiran Norris, PGy1 <Cait Beck - Last Filed: 06/15/18 16:19> Results - Vital Signs Recent Vital Signs: Last Vital Signs Temp 97.7 F 06/15/18 12:47 Pulse 109 H 06/15/18 12:47 Resp 22 06/15/18 12:47 BP 137/78 06/15/18 12:47 Pulse Ox 97 06/15/18 12:47 - Labs Result Diagrams: 06/15/18 07:00 06/15/18 07:00 Labs: Laboratory Results - last 24 hr 06/15/18 06/15/18 07:00 07:00 WBC 6.2 RBC 4.70 Hgb 13.8 Hct 40.6 MCV 86.5 MCH 29.5 MCHC 34.1 RDW 13.2 Plt Count 260 MPV 8.3 Neut % (Auto) 71.5 Lymph % (Auto) 17.5 L Alfalfa % (Auto) 9.0 Eos % (Auto) 1.2 Baso % (Auto) 0.8 Neut # (Auto) 4.5 Lymph # (Auto) 1.1 Alfalfa # (Auto) 0.6 Eos # (Auto) 0.1 Baso # (Auto) 0.1 Sodium 141 Potassium 3.8 Chloride 101 Carbon Dioxide 32 H Anion Gap 12 BUN 13 Creatinine 0.7 Est GFR ( Amer) > 60 Est GFR (Non-Af Amer) > 60 Random Glucose 80 Calcium 9.7 Phosphorus 3.8 Magnesium 1.9 Total Bilirubin 0.9 AST 89 H ALT 64 H Alkaline Phosphatase 70 Total Protein 7.3 Albumin 3.9 Globulin 3.5 Albumin/Globulin Ratio 1.1 Attending/Attestation - Attestation I have personally seen and examined this patient.: Yes I have fully participated in the care of the patient.: Yes I have reviewed all pertinent clinical information: Yes Notes (Text): 06/15/18 16:19 Agree with findings and plan as above.
[2018-06-14 14:25] LABS: BASO % 1.1 % (0.0-2.0); EOS # 0.1 K/uL (0.0-0.7); EOS % 3.1 % (0.0-4.0); HEMOGLOBIN 12.9 g/dL (12.0-16.0); LYMPH # 1.3 K/uL (1.0-4.3); LYMPH % 29.6 % (20.0-40.0); MEAN CELL VOLUME 86.3 fl (81.0-99.0); MEAN CORPUSCULAR HEMOGLOBIN 29.6 pg (27.0-31.0); MEAN CORPUSCULAR HGB CONC 34.3 g/dL (33.0-37.0); MONO # 0.6 K/uL (0.0-0.8); MONO % 12.5 % (0.0-10.0); NEUT # 2.4 K/uL (1.8-7.0); NEUT % 53.7 % (50.0-75.0); NRBC % 0.3 % (0.0-0.0); RBC 4.37 Mil/uL (3.80-5.20); RED CELL DISTRIBUTION WIDTH 13.6 % (11.5-14.5); WHITE BLOOD COUNT 4.5 K/uL (4.8-10.8)
[2018-06-14 14:33] LABS: ALB/GLOB RATIO 1.1 (1.0-2.1); ALBUMIN 3.7 g/dL (3.5-5.0); ALT/SGPT 57 U/L (9-52); AST/SGOT 101 U/L (14-36); BLOOD UREA NITROGEN 16 mg/dl (7-17); CALCIUM 9.4 mg/dL (8.4-10.2); GFR NON-AFRICAN AMERICAN > 60
[2018-06-15 07:18] LABS: BASO # 0.1 K/uL (0.0-0.2); BASO % 0.8 % (0.0-2.0); EOS # 0.1 K/uL (0.0-0.7); EOS % 1.2 % (0.0-4.0); HEMOGLOBIN 13.8 g/dL (12.0-16.0); LYMPH # 1.1 K/uL (1.0-4.3); LYMPH % 17.5 % (20.0-40.0); MEAN CELL VOLUME 86.5 fl (81.0-99.0); MEAN CORPUSCULAR HEMOGLOBIN 29.5 pg (27.0-31.0); MEAN CORPUSCULAR HGB CONC 34.1 g/dL (33.0-37.0); MEAN PLATELET VOLUME 8.3 fl (7.2-11.7); MONO # 0.6 K/uL (0.0-0.8); NEUT # 4.5 K/uL (1.8-7.0); NEUT % 71.5 % (50.0-75.0); NRBC % 0.1 % (0.0-0.0); RBC 4.7 Mil/uL (3.80-5.20); RED CELL DISTRIBUTION WIDTH 13.2 % (11.5-14.5); WHITE BLOOD COUNT 6.2 K/uL (4.8-10.8)
[2018-06-15 07:26] LABS: ALB/GLOB RATIO 1.1 (1.0-2.1); ALBUMIN 3.9 g/dL (3.5-5.0); ALT/SGPT 64 U/L (9-52); AST/SGOT 89 U/L (14-36); BLOOD UREA NITROGEN 13 mg/dl (7-17); CALCIUM 9.7 mg/dL (8.4-10.2); GFR NON-AFRICAN AMERICAN > 60
--- NOTE | 2018-06-15 08:14 | PCM.PYCHPN ---
Psychiatric Progress Note - Psychiatric Progress Note Patient seen today, length of contact: Pt evaluated, case discussed w/ team, chart reviewed Patient Chief Complaint: "I don't want to be here." /Patient admitted s/p overdose on Valium Problems Identified/Issues Discussed: Patient continues to be drowsy, but is arousable and not cooperative with interview. Vital signs stable. No current tremors or withdrawal symptoms. Patient to be screened for involuntary psychiatric admission. Medication Change: No Medical Record Reviewed: Yes Consults ordered or reviewed: Medicine consult Mental Status Examination - Cognitive Function Memory: Intact Decription of patient's judgement and insights: Poor I/J - Mood Mood: Depressed - Affect Affect: Constricted, Depressed - Speech Speech: Slurred - Formal Thought Process Formal Thought Process: Other (Poverty of speech; does not answer questions) Psychotic Thoughts and Behaviors: Denies AH/VH - Homicidal Ideation Homicidal Ideation: No Goal/Treatment Plan - Goal/Treatment Plan Need for Continued Stay: Remain at risks for inpatient hospitalization, Severe depression anxiety, Discharge may exacerbated symptoms Progress Toward Problem(s) and Goals/Treatment Plan: Major Depressive Disorder -Monitor for benzo withdrawal; will give Ativan as needed -Screen for involuntary psychiatric admission -Individual and group therapy -1:1 as patient is not able to contract for safety at this time -Medicine consult
[2018-06-15] MEDS: Multivitamin With Minerals Tab PO SCH (09:23)
[2018-06-16 02:48] VITALS: O2SAT 98
--- NOTE | 2018-06-16 09:26 | PCM.PYCHPN ---
Psychiatric Progress Note - Psychiatric Progress Note Patient seen today, length of contact: Pt evaluated, case discussed w/ team, chart reviewed Patient Chief Complaint: "I don't want to be here." /Patient admitted s/p overdose on Valium Problems Identified/Issues Discussed: Patient was screened and accept for involuntary psychiatric admission. She continues to be uncooperative with interview and treatment. Will not answer questions from com writer. Vital signs stable. No current tremors or withdrawal symptoms. Medication Change: No Medical Record Reviewed: Yes Consults ordered or reviewed: Medicine consult Mental Status Examination - Cognitive Function Memory: Intact Fund of Knowledge: WNL Decription of patient's judgement and insights: Poor I/J - Mood Mood: Depressed - Affect Affect: Constricted, Depressed - Speech Speech: Soft - Formal Thought Process Formal Thought Process: Other (Poverty of speech; does not answer questions) Psychotic Thoughts and Behaviors: Denies AH/VH - Homicidal Ideation Homicidal Ideation: No Goal/Treatment Plan - Goal/Treatment Plan Need for Continued Stay: Remain at risks for inpatient hospitalization, Severe depression anxiety, Discharge may exacerbated symptoms Progress Toward Problem(s) and Goals/Treatment Plan: Major Depressive Disorder -[place] [facility] -1:1 as patient is not able to contract for safety at this time -Medicine consult
[2018-06-16] MEDS: Multivitamin With Minerals Tab PO SCH (10:09)
--- NOTE | 2018-06-16 13:05 | CP.PCM.PN ---
Subjective - Date & Time of Evaluation Date of Evaluation: 06/16/18 Time of Evaluation: 13:04 - Subjective Subjective: no complaints at this time hd stable nad Objective - Vital Signs/Intake and Output Vital Signs (last 24 hours): Temp Pulse Resp BP Pulse Ox 97.3 F L 84 20 126/87 98 06/16/18 09:00 06/16/18 10:11 06/16/18 09:00 06/16/18 10:11 06/16/18 09:00 - Medications Medications: Current Medications Acetaminophen (Tylenol 325mg Tab) 650 mg PO Q4 PRN PRN Reason: Pain, moderate (4-7) Last Admin: 06/16/18 02:36 Dose: 650 mg Al Hydrox/Mg Hydrox/Simethicone (Maalox Plus 30 Ml) 30 ml PO Q4 PRN PRN Reason: Dyspepsia Diphenhydramine HCl (Benadryl) 50 mg IM Q6 PRN PRN Reason: Extrapyramidal S/S Unable PO Diphenhydramine HCl (Benadryl) 50 mg PO Q6 PRN PRN Reason: Extrapyramidal Symptoms Diphenhydramine HCl (Benadryl) 50 mg PO HS PRN PRN Reason: Sleep Last Admin: 06/15/18 21:18 Dose: 50 mg Gabapentin (Neurontin) 300 mg PO TID [facility] Last Admin: 06/16/18 10:08 Dose: 300 mg Haloperidol (Haldol) 5 mg PO Q4 PRN PRN Reason: Agitation Haloperidol Lactate (Haldol) 5 mg IM Q4 PRN PRN Reason: Agitation, Unable to Take PO Hydrochlorothiazide (Microzide) 12.5 mg PO DAILY [facility] Last Admin: 06/16/18 10:11 Dose: 12.5 mg Lisinopril (Zestril) 5 mg PO DAILY [facility] Last Admin: 06/16/18 10:11 Dose: 5 mg Lorazepam (Ativan) 2 mg IM Q4 PRN PRN Reason: Anxiety/Agitation,Unable PO Lorazepam (Ativan) 2 mg PO Q4 PRN PRN Reason: Anxiety/Agitation Last Admin: 06/14/18 08:07 Dose: 2 mg Lorazepam (Ativan) 1 mg PO TID PRN PRN Reason: Anxiety Last Admin: 03/08/19 10:57 Dose: 1 mg Magnesium Hydroxide (Milk Of Magnesia) 30 ml PO HS PRN PRN Reason: Constipation Multivitamins/Minerals (Therapeutic-M Tab) 1 tab PO DAILY [facility] Last Admin: 06/16/18 10:09 Dose: 1 tab Tramadol HCl (Ultram) 50 mg PO Q6 PRN PRN Reason: Pain, moderate (4-7) Last Admin: 06/16/18 11:09 Dose: 50 mg Venlafaxine HCl (Effexor) 75 mg PO DAILY [facility] Last Admin: 06/16/18 10:09 Dose: 75 mg - Labs Labs: 06/15/18 07:00 06/15/18 07:00 PT 12.5 Seconds (9.8-13.1) 06/13/18 10:00 INR 1.1 06/13/18 10:00 APTT 37.4 Seconds (25.6-37.1) H 06/13/18 10:00 - Constitutional Appears: Non-toxic, No Acute Distress - Head Exam Head Exam: ATRAUMATIC, NORMOCEPHALIC - Eye Exam Eye Exam: EOMI, Normal appearance Pupil Exam: NORMAL ACCOMODATION - ENT Exam ENT Exam: Mucous Membranes Moist, Normal Oropharynx - Respiratory Exam Respiratory Exam: Clear to Ausculation Bilateral, NORMAL BREATHING PATTERN - Cardiovascular Exam Cardiovascular Exam: RRR, +S1, +S2 - GI/Abdominal Exam GI & Abdominal Exam: Soft, Normal Bowel Sounds. absent: Tenderness, Organomegaly - Extremities Exam Extremities Exam: Normal Capillary Refill, Normal Inspection - Back Exam Back Exam: absent: CVA tenderness (L), CVA tenderness (R) - Neurological Exam Neurological Exam: Alert, Awake - Skin Skin Exam: Dry, Warm Assessment and Plan - Assessment and Plan (Free Text) Plan: 53 year old female admitted for benzo overdose. She is medically stable for discharge to [facility].
[2018-06-17 08:29] VITALS: RESP 18; TEMP 98
--- NOTE | 2018-06-17 08:33 | PCM.PYCHDC ---
Mental Status Examination - Mental Status Examination Orientation: Person, Place, Situation, Time Memory: Intact Mood: Depressed Affect: Blunted, Depressed Speech: Soft Attention: Poor Concentration: Poor Formal Thought Process: No Impairment Description of patient's judgement and insight: Poor I/J Psychotic Thoughts and Behaviors: Denies AH/VH Suicidal Ideation: No Current Homicidal Ideation?: No Discharge Summary - Discharge Note Reason for Hospitalization: Patient currently unwilling to answer questions from song writer, despite being arousable, she closes her eyes and doesn't answer questions. She did state that she wants to leave and poorly attempted to sign her name on the 48 hr notice. HPI: 53 year old female with a past medical history of hypertension who was b rought to the ED by EMS for evaluation of altered mental status s/p intention overdose of diazepam. Patient was brought in by [facility] with boyfriend. She can not recall how many tablets she took. Her boyfriend states that he saw her yesterday and found her unconscious this morning. EMS reports that they found a suicide note along with an empty bottle of diazepam filled on 06/09/18 with 50 pills of 5 mg. EMS was able to show suicide note which stated that she was intentionally overdosing on medication as she feels like she cant make people happy and also states that she didnt want a service and wants to be cremated. ER Spoke with patients boyfriend who also lives with patient and he states that she took pills 2 nights ago but doesnt know how many she took. He admits that she stated that she wanted to kill herself but he states that she had a history of threats so he did not take her seriously. He states that she was asleep when he woke up so he went to work and came home last night where patient was able to walk to the bathroom where she collapsed and he had to help her up and get her into bed. PMHx: S/p back surgery; HTN ALL: PCN Consultations:: List each consultation separately and include: 1. Reason for request. 2. Findings. 3. Follow-up Consultations: Medicine consult Summary of Hospital Course include:: 1. Description of specific treatment plan utilized for patients during their course of treatmen. 2. Summarize the time- course for resolution of acute symptoms and/or regressed behaviors. 3. Describe issues identified and worked on during hospitalization. 4. Describe medication utilized. 5. Describe medical problems identified and treated. 6. Reassessment of suicide risk Summary of Hospital Course: Patient was admitted to the psychiatry unit. Patient has not been cooperative with interview or treatment since admission. She submitted a 48 hr letter, was screened for involuntary psychiatric admission and will be transferred to other acute care hospital for involuntary psychiatric admission. She continues to be an acute danger to herself. - Diagnosis (1) Major depressive disorder Current Visit: Yes Status: Acute - Final Diagnosis (DSM 5) Condition upon Discharge: SERIOUS DSM 5: Major Depressive Disorder Disposition: Trans to Other Acute Care Hosp Follow-up Treatment Plan: Major Depressive Disorder -Transfer for involuntary psychiatric admission - Smoking Cessation Smoking Cessation Medication prescribed: No Reason for not providing: Not indicated - Antipsychotic Medications Pt discharged on 2 or more routine antipsychotic medications: No
[2018-06-17] MEDS: Multivitamin With Minerals Tab PO SCH (08:57)
[2018-06-17 08:58] VITALS: BP 109/74; PULSE 71
== END 2018-06-17 11:30 | DRG 430 ==
LOC: H.ER 09:12 → H.ERHOLD 13:57 → H.PSYCH 15:48 → H.STEP 17:00
PROVIDERS: ADMIT Psychiatry & Neurology Psychiatry; ATTEND Psychiatry & Neurology Psychiatry
DX: F32.2 Major depressive disorder, single episode, severe without psychotic features (principal); F41.9 Anxiety disorder, unspecified; Z88.0 Allergy status to penicillin; I10 Essential (primary) hypertension; T42.4X2A Poisoning by benzodiazepines, intentional self-harm, initial encounter; R41.82 Altered mental status, unspecified